=== PATIENT | female | born 2000 | race Caucasian/White ===

== ENCOUNTER 2019-02-04 03:47 | Emergency (ER) | payer SELFPAY ==
[~2019-02-04] VITALS: Ht 160 cm; Wt 56.8 kg
[~2019-02-04 03:47] MED LIST: ALBU18HF INHALATION; PRED20TA PO
[2019-02-04 03:49] VITALS: BP 141/80; PULSE 106; RESP 19; Ht 160 cm; Wt 56.8 kg
[2019-02-04] MEDS ORDERED: IPRATROPIUM (NEB) 0.5 MG/2.5 ML AMP INH STA (03:56)
[2019-02-04] MEDS ORDERED: ALBUTEROL 0.5% (NEB) 2.5 MG/0.5 ML AMP INH STA (03:56)
[2019-02-04] MEDS ORDERED: predniSONE 20 MG TAB PO STA (03:56)
--- NOTE | 2019-02-04 04:11 | ERD ---
ER Documentation Chief Complaint Chief Complaint ASTHMA EXCERBATION; HX OF ASTHMA; NO INHALER HPI 19-year-old female history of asthma who presents the emergency room with asthma exacerbation after running out of her inhaler. She has not used her inhaler in several days. She notes wheezing and short of breath. She has multiple environmental triggers. She denies any fevers cough congestion or significant shortness of breath. No nausea vomiting or diarrhea. ROS All systems reviewed and are negative except as per history of present illness. Medications Home Meds Active Scripts Prednisone* (Prednisone*) 20 Mg Tab, 40 MG PO DAILY for 4 Days, TAB Prov:ARMANDO CAIN MD 02/04/19 Albuterol Sulfate* (Ventolin HFA*) 18 Gm Hfa.aer.ad, 2 PUFF INHALATION Q4H, #1 INHALER Prov:ARMANDO CAIN MD 02/04/19 Allergies Allergies: Coded Allergies: No Known Allergy (Unverified , 02/04/19) PMhx/Soc Medical and Surgical Hx: pt denies Medical Hx, pt denies Surgical Hx History of Surgery: No Anesthesia Reaction: No Hx Neurological Disorder: No Hx Respiratory Disorders: No Hx Cardiac Disorders: No Hx Psychiatric Problems: No Hx Miscellaneous Medical Probl: No Hx Alcohol Use: No Hx Substance Use: No Hx Tobacco Use: No Smoking Status: Never smoker FmHx Family History: No diabetes Physical Exam Vitals Vital Signs Date Temp Pulse Resp B/P (MAP) Pulse Ox O2 O2 Flow FiO2 Time Delivery Rate 02/04/19 84 24 94 21 04:09 02/04/19 98.5 106 19 141/80 93 03:49 (100) Physical Exam General: Well developed, well nourished, no acute distress Head: Normocephalic, atraumatic. Eyes: Pupils equally reactive, EOM intact ENT: Moist mucous membranes Neck: Supple, no lymphadenopathy Respiratory: Scant wheezing diffusely, good aeration, no respiratory distress Cardiovascular: RRR, no murmurs, rubs, or gallops Abdominal: Soft, non-tender, non-distended, no peritoneal signs : Deferred MSK: No edema, no unilateral swelling, 5/5 strength Neurologic: Alert and oriented, moving all extremities, normal speech, no focal weakness, no cerebellar signs Skin: No rash Psych: Normal mood Results 24 hrs Current Medications Medications Dose Sig/Peter Start Time Status Last (Trade) Ordered Route PRN Stop Time Admin Dose Reason Admin Albuterol 10 mg ONCE STAT 02/04/19 DC 02/04/19 (Proventil INH 03:56 04:08 0.5% (Neb)) 02/04/19 03:57 Ipratropium 1 mg ONCE STAT 02/04/19 DC 02/04/19 [place] [facility] 03:56 04:08 (Atrovent 02/04/19 03:57 0.02% (Neb)) Prednisone 60 mg ONCE STAT 02/04/19 DC 02/04/19 (Prednisone) PO 03:56 04:04 02/04/19 03:57 Procedures/MDM MEDICAL DECISION MAKING: Clinical exam history and presentation very consistent with mild to moderate asthma exacerbation. No evidence of impending respiratory failure. Likely environmental trigger. No evidence of infectious process. ER COURSE: * Patient given breathing treatment, steroids. * Subjective and objective improvement at the bedside. At this point the patient can be safely discharged home. CONSULTATION: None DISPOSITION PLAN: The patient does not have an identifiable emergent medical condition that warrants inpatient hospitalization at this time. The patient is deemed safe for discharge with outpatient follow-up. We discussed follow up with the patient's primary care doctor within 24 to 48 hours as needed. We also discussed return to the emergency room for worsening symptoms or worsening condition. Outpatient referral: None required Discharge Medications: Ventolin, prednisone Departure Diagnosis: Primary Impression: Asthma with acute exacerbation Asthma severity: unspecified severity Asthma persistence: unspecified Qualified Codes: J45.901 - Unspecified asthma with (acute) exacerbation Condition: ARMANDO Figueredo MD Feb 04, 2019 04:11
== END 2019-02-04 05:32 | disposition home or self-care (01) ==
LOC: FTE 03:47
DX: J45.901 Unspecified asthma with (acute) exacerbation (principal)
CPT/HCPCS: 94644; 99283; J7512